=== PATIENT | female | born 1995 | race Caucasian/White ===

== ENCOUNTER 2020-10-20 11:22 | Emergency (ER) | payer BC ==
[~2020-10-20] VITALS: Wt 63.5 kg
[2020-10-20] MEDS ORDERED: PROVENTIL HFA6.7 GM INH (13:19)
[2020-10-20] MEDS ORDERED: PREDNISONE20 M1 PO (13:19)
== END 2020-10-20 14:30 | disposition home or self-care (01) ==
LOC: ED 11:22
DX: U07.1 COVID-19 (principal)